=== PATIENT | female | born 1990 | race African-American/Black ===

== ENCOUNTER 2018-02-20 10:54 | Emergency (ER) | payer MEDICAID, OTHER ==
[~2018-02-20] VITALS: Ht 157.5 cm; Wt 100.0 kg
[2018-02-20 11:04] VITALS: BP 113/74; PULSE 78; RESP 16; TEMP 98.9; O2SAT 100
--- NOTE | 2018-02-20 11:28 | PD ---
HPI Chief Complaint: [place] Problem/Complaint Time Seen by Provider: 11:12 Travel History International Travel<30 days: No Contact w/Intl Traveler<30days: No Traveled to known affect area: No History of Present Illness HPI 27-year-old female presents to the emergency department with complaint of vaginal pain 2 days. She said the pain started after having sexual intercourse on Monday night. Says she does not know if it was rough sex. She says she does not know if she is having abnormal vaginal discharge and has not noticed an odor. Denies fever, vomiting, abdominal pain. Says it [place] when she urinates, but does not know if there is a cut or something causing the pain when she urinates. Rates pain 02/11. Has not taken any medications or try treatments to alleviate her symptoms. Described as stabbing. Pain is constant and there are no known relieving or aggravating factors. Has an IUD and has never been able to feel the string. Her last menstrual period was 2 weeks ago. No primary care provider. No industrial psychologist. No known allergies. Denies significant past medical history. Has no other medical complaints. No other modifying factors or associated signs and symptoms. PFSH Past Medical History ?: Not Social History Tobacco Use: No Allergies-Medications (Allergen,Severity, Reaction): Coded Allergies: No Known Allergies (Unverified , 02/20/18) Reported Meds & Prescriptions Reported Meds & Active Scripts Active Ibuprofen 800 Mg Tab 800 Mg PO Q6HR PRN Doxycycline Hyclate 100 Mg Cap 100 Mg PO BID 14 Days Review of Systems Except as stated in HPI: all other systems reviewed are Neg Physical Exam Narrative GENERAL: Well-nourished, well-developed black female patient, in no acute distress; afebrile, nontoxic-appearing SKIN: Warm and dry. HEAD: Atraumatic. Normocephalic. EYES: Pupils equal and round. No scleral icterus. No injection or drainage. ENT: Mucous membranes pink and moist. NECK: Trachea midline. No lymphadenopathy. CARDIOVASCULAR: Regular rate and rhythm. No murmur appreciated. RESPIRATORY: No accessory muscle use. Clear to auscultation. Breath sounds equal bilaterally. GASTROINTESTINAL: Abdomen soft, non-tender, nondistended. Bilateral pelvic region nontender to palpation. Hepatic and splenic margins not palpable. No guarding, rigidity, rebound tenderness. PELVIC: Exam done in the presence of a nurse. Speculum exam reveals edematous and erythematous cervix with yellowish, mucopurulent, foul-smelling discharge. Bimanual exam reveals no palpable masses or adnexa tenderness, no uterine tenderness. Positive cervical motion tenderness. Unable to visualize IUD string. BACK: No CVA tenderness. MUSCULOSKELETAL: No obvious deformities. No clubbing. No cyanosis. No edema. NEUROLOGICAL: Awake and alert. No obvious cranial nerve deficits. Motor grossly within normal limits. Normal speech. PSYCHIATRIC: Appropriate mood and affect; insight and judgment normal. Data Data Last Documented VS Vital Signs Date Time Temp Pulse Resp B/P (MAP) Pulse Ox O2 Delivery O2 Flow Rate FiO2 02/20/18 11:04 98.9 78 16 113/74 (87) 100 Orders Orders Gc And Chlamydia Pcr (02/20/18 11:23) Wet Prep Profile (02/20/18 11:23) Urinalysis - C+S If Indicated (02/20/18 11:23) Ed Urine Pregnancytest Poc (02/20/18 11:23) Abdomen, Kub Only (02/20/18 12:07) Azithromycin Powd Pack (Zithromax Powd P (02/20/18 12:15) Ceftriaxone Inj (Rocephin Inj) (02/20/18 12:15) Lidocaine 1% Inj (50 Ml) (Xylocaine 1% I (02/20/18 12:15) Ketorolac Inj (Toradol Inj) (02/20/18 12:15) Metronidazole (Flagyl) (02/20/18 13:00) Ondansetron Odt (Zofran Odt) (02/20/18 13:00) Ed Discharge Order (02/20/18 13:22) Labs Laboratory Tests Test 02/20/18 11:55 02/20/18 12:00 Urine Color YELLOW Urine Turbidity HAZY Urine pH 8.0 Urine Specific [place] 1.028 Urine Protein NEG mg/dL Urine Glucose (UA) NEG mg/dL Urine Ketones NEG mg/dL Urine Occult Blood NEG Urine Nitrite NEG Urine Bilirubin NEG Urine Urobilinogen 2.0 mg/dL Urine Leukocyte Esterase TRACE Urine RBC 2 /hpf Urine WBC 4 /hpf Urine Squamous Epithelial Cells 4 /hpf Urine Bacteria RARE /hpf Microscopic Urinalysis Comment CULT NOT INDICATED Clue Cells (Wet Prep) NONE SEEN Vaginal Trichomonas (Wet Prep) PRESENT Vaginal Yeast (Wet Prep) NONE SEEN MDM Medical Decision Making Medical Screen Exam Complete: Yes Emergency Medical Condition: Yes Medical Record Reviewed: Yes Differential Diagnosis Vaginal tear, vaginal laceration, genital herpes, PID Narrative Course 27-year-old female physical exam and pelvic exam consistent with pelvic inflammatory disease. Positive cervical motion tenderness. Patient will be empirically treated in the emergency department with a azithromycin, Rocephin. I was unable to visualize IUD on physical exam. KUB ordered. 1256: Clue cells negative. Vaginal yeast negative. Positive for trichomonas. Flagyl 2 g and Zofran ordered and administered in the ER. 1316: KUB conclude: Abdomen X-Ray 02/20/18 1207 Signed Impressions: CONCLUSION: Intrauterine device projected over the upper central pelvis. Patient provided a copy of the x-ray report. Doxycycline, ibuprofen prescribed for home. Instructed patient to follow-up with industrial psychologist and/or [facility] for follow-up care. Patient provided information for [facility] for [facility]. Instructed patient to follow up with primary care provider. Patient verbalizes understanding and agreement with treatment plan. Patient is medically cleared and stable for discharge. Discussed reasons to return to the emergency department. Patient agrees with treatment plan. The patients vital signs are stable and the patient is stable for outpatient follow-up and treatment. Patient discharged home, stable and in no acute distress. Diagnosis Primary Impression: PID (pelvic inflammatory disease) Additional Impression: Trichomoniasis Referrals: [facility] [employer] [facility] Primary Care Physician Patient Instructions: General Instructions, Pelvic Inflammatory Disease (ED), Trichomoniasis (ED) Additional Instructions: Avoid sexual activity for 14 days No sexual activity with your partner/s until they have been treated and waited 14 days Inform all sexual partners within the past 3-6 months that they need to be evaluated and treated Use condoms every time you have sex Follow-up with primary care provider Return to the emergency department immediately with worsening of symptoms Med/Other Pt SpecificInfo: Prescription(s) given Scripts Ibuprofen (Ibuprofen) 800 Mg Tab 800 MG PO Q6HR Y for PAIN, #20 TAB 0 Refills Prov: Marcela Zavala 02/20/18 Doxycycline Hyclate (Doxycycline Hyclate) 100 Mg Cap 100 MG PO BID for Infection for 14 Days, #28 CAP 0 Refills Prov: Marcela Zavala 02/20/18 Disposition: 01 DISCHARGE HOME Condition: Stable Marcela Zavala Feb 20, 2018 11:28
[2018-02-20] MEDS ORDERED: DOXY100C PO (12:12)
[2018-02-20] MEDS ORDERED: AZITHROMYCIN PWD FOR SUSP 1 GM PACKET PO ONE (12:15)
[2018-02-20] MEDS ORDERED: cefTRIAXone 250 MG VIAL IM ONE (12:15)
[2018-02-20] MEDS ORDERED: LIDOCAINE HCL 1% 50 ML VIAL IM ONE (12:15)
[2018-02-20] MEDS ORDERED: KETOROLAC TROMETHAMINE 60 MG/2 ML (IM) VIAL IM ONE (12:15)
[2018-02-20 12:18] LABS: BACTERIA, URINE RARE /hpf; BILIRUBIN, URINE NEG (NEG); BLOOD, URINE NEG (NEG); GLUCOSE,URINE NEG (NEG); KETONE, URINE NEG (NEG); NITRITE,URINE NEG (NEG); SQUAMOUS EPITHELIAL CELL URINE 4 /hpf (0-5); URINE COLOR YELLOW (YELLW/STRAW); URINE LEUKOCYTE ESTERASE TRACE (NEG)
--- NOTE | 2018-02-20 12:59 | RADRPT ---
EXAM DATE: 02/20/2018 12:56 PM EDT AGE/SEX: 27 years / Female INDICATIONS: Abdominal pain. Evaluate for IUD, not seen on physical exam. CLINICAL DATA: This is the patient's initial encounter. Patient reports that signs and symptoms have been present for 2 days and indicates a pain score of 6/10. MEDICAL/SURGICAL HISTORY: None. None. COMPARISON: No prior exams available for comparison. FINDINGS: The abdominal bowel gas pattern is normal. No abnormal masses, calcifications, or organomegaly is s een. The osseous structures are unremarkable. There is an intrauterine device projected over the upp er central pelvis. CONCLUSION: Intrauterine device projected over the upper central pelvis. Electronically signed by: Abran Mccurdy MD 02/20/2018 12:58 PM EDT
[2018-02-20] MEDS ORDERED: ONDANSETRON ODT 4 MG TAB PO ONE (13:00)
[2018-02-20] MEDS ORDERED: metroNIDAZOLE 500 MG TAB PO ONE (13:00)
[2018-02-20] MEDS ORDERED: IBUP1TAB7 PO (13:22)
== END 2018-02-20 14:29 | disposition home or self-care (01) ==
LOC: NEPD 10:54
DX: N73.9 Female pelvic inflammatory disease, unspecified (principal); A59.9 Trichomoniasis, unspecified
CPT/HCPCS: 74018; 81001; 84703; 87210; 87491; 87591; 96372; 99284; J0696; J1885